=== PATIENT | male | born 2000 | race Caucasian/White ===

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

== ENCOUNTER 2018-01-29 08:35 | Emergency (ER) | payer SELFPAY, MEDICAID ==
[2018-01-29] MEDS: IBUPROFEN 600 MG TAB PO (09:30)
[2018-01-29 10:10] LABS: MONOTEST Negative (NEG)
== END 2018-01-29 10:33 | disposition home or self-care (01) ==
LOC: FTE 08:35
DX: J02.9 Acute pharyngitis, unspecified (principal)
CPT/HCPCS: 86308; 87880; 99283